=== PATIENT | male | born 1960 | race African-American/Black ===

== ENCOUNTER 2016-08-28 08:51 | Outpatient (CLI) | payer OTHER | END 2016-08-28 08:52 | LOC: LAB 08:51 | PROVIDERS: ATTEND Physician Assistant | DX: E11.9 Type 2 diabetes mellitus without complications (principal) | CPT/HCPCS: 36415; 83036 ==

== ENCOUNTER 2017-04-01 10:15 | Outpatient (CLI) | payer OTHER ==
[2017-04-01 11:04] LABS: eGFR (African) > 60; eGFR (Non-African) > 60
== END 2017-04-01 10:16 ==
LOC: LAB 10:15
PROVIDERS: ATTEND Family Medicine
DX: E11.9 Type 2 diabetes mellitus without complications (principal)
CPT/HCPCS: 36415; 80053; 80061; 83036

== ENCOUNTER 2017-05-20 10:47 | Outpatient (CLI) | payer OTHER ==
[~2017-05-20 10:47] MED LIST: 0.9 % SODIUM CHLORIDE PF 10 ML VIAL IJ ONE; Lidocaine 1% 5ml(IM or SUTURE)(PAIN CLINIC) ONE; TRIAMCINOLONE ACETONID 40MG/ML VIAL ONE
--- NOTE | 2017-05-20 15:07 | HISTORY AND PHYSICAL REPORT ---
REFERRING PHYSICIAN: Dr. Marbella Hunter HISTORY OF PRESENT ILLNESS: Mr. Mcarthur comes in today in follow up. This is a patient I saw in 2014 with lumbar radiculitis and an L5-S1 pars defect with spinal stenosis. He was treated with a lumbar epidural steroid injection x1 and his symptoms completely resolved. More recently, his pain has returned. He says it is slightly more left than right but bilateral radiating into both hips when he ambulates. He says this has occurred over the last couple of months and he presents today in follow up for treatment. PAST MEDICAL HISTORY: 1. History of hypertension. 2. Diabetes. 3. Gout. PAST SURGICAL HISTORY: Right wrist fracture requiring surgical repair. DAILY MEDICATIONS: 1. Glipizide 10 mg b.i.d. 2. Meloxicam 15 mg daily. 3. Amlodipine 5 mg daily. 4. Lisinopril/HCTZ 20/25 mg daily. 5. Allopurinol 300 mg daily. 6. Invokana 300 mg daily. 7. Metformin 1000 mg b.i.d. ALLERGIES: He has no known drug allergies. SOCIAL HISTORY: Unknown tobacco, alcohol, or recreational drug use. He has never been . He has children. He lives at home alone. He completed the 12th grade. 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 He is not disabled. FAMILY HISTORY: Father with stroke and diabetes. Mother with heart disease. Siblings with heart disease. REVIEW OF SYSTEMS: In the last month or so, he has had no complaints. His pain is worsened with bending over and first thing in the morning. Pain is improved with standing. PHYSICAL EXAMINATION: General: This is an obese male in no apparent distress. HEENT: Pupils are equal, round, and reactive to light and accommodation. Extraocular movements intact. No facial droop. Neck: There is full range of motion of the cervical spine. No evidence of adenopathy. Thyroid is nontender, not enlarged. Carotids are without bruits. Chest: Clear to auscultation bilaterally. Normal chest excursion. Heart: Regular rate and rhythm without murmur. Abdomen: Benign. Normoactive bowel sounds. Motor/sensory: Intact in the upper and lower extremities. Moves all extremities freely. Back: There are normal cervical, thoracic and lumbar curvatures. There are negative sacroiliac joint findings bilaterally. No evidence of pain or tenderness over the facet joints. Negative piriformis bilaterally. Negative straight leg raise. No evidence of dermatomal weakness or numbness in the lower extremities. Bilateral negative femoral nerve stretch. Patellar tendons are 2+ and equal bilaterally. ASSESSMENT: 1. L5-S1 pars defect. 2. Spinal stenosis. PLAN: L5-S1 epidural steroid injection under fluoroscopy. FOLLOW UP: Return to clinic if problems develop or worsen. cc: Dr. Marbella REDDING
--- NOTE | 2017-05-20 15:14 | LESI WITH FLUORO ---
OPERATIVE PROCEDURE: Left L5-S1 epidural steroid injection with fluoroscopic guidance. DESCRIPTION OF THE PROCEDURE: The risks and benefits were discussed with the patient including the risk of infection, bleeding, nerve injury, and headache, as well as the risks of steroid exposure causing hyperglycemia, hypertension, osteoporosis, or increased infectious risks. The patient understood these risks and agreed to proceed. Consent was obtained prior to the procedure. The patient was placed in the prone position on the fluoroscopy table with a pillow underneath the abdomen to afford anterior flexion of the lumbar spine. The low back was cleaned with and a sterile drape was applied. A 20-gauge thin wall Tuohy epidural needle was advanced with normal saline loss of resistance technique and direct fluoroscopic guidance with a left paramedian approach at the L5-S1 level. On obtaining loss of resistance to normal saline, it was verified that there was no aspiration of CSF or blood. Furthermore, the needle tip location was verified with lateral and AP fluoroscopic views. Omnipaque 240 myelogram dye were injected through the epidural needle. The distribution of the dye was noted to be within the desired distribution within the lumbar epidural space. The medication was injected into the epidural space. The stylet was replaced in the needle and the needle was removed from the back. The patient tolerated the procedure well. The back was cleaned and a bandage was applied over the injection site. The patient was monitored for 20 minutes following the procedure. during this time the vital signs remained stable and the patient experienced no adverse sequelae. The patient was discharged in good condition. ASSESSMENT: 1. L5-S1 pars defect. 2. Spinal stenosis. PLAN: Left L5-S1 lumbar epidural steroid injection with fluoroscopic guidance today. FOLLOWUP: Return to clinic if problems develop or worsen. cc: Dr. Marbella REDDING
== END 2017-05-20 10:50 ==
LOC: OUT 10:47
PROVIDERS: ATTEND Anesthesiology Pain Medicine
DX: M43.07 Spondylolysis, lumbosacral region (principal); M48.07 Spinal stenosis, lumbosacral region
CPT/HCPCS: J3301; Q9966; 62323; 99213

== ENCOUNTER 2017-06-17 10:52 | Outpatient (CLI) | payer OTHER ==
--- NOTE | 2017-06-20 14:51 | LESI WITH FLUORO ---
SUBJECTIVE: Mr. Mcarthur is a delightful 56-year-old male with a history of pars defect at L5-S1 associated with radiculitis. His left leg pain and back pain completely resolved following an injection. He lifted a large cabinet and his back pain is now returning. I am following him up today for a left L5-S1 epidural injection under fluoroscopic guidance. He is in agreement today and we will proceed. OPERATIVE PROCEDURE: Left L5-S1 epidural steroid injection with fluoroscopic guidance. DESCRIPTION OF PROCEDURE: The risks and benefits were discussed with the patient including the risk of infection, bleeding, nerve injury, and headache, as well as the risks of steroid exposure causing hyperglycemia, hypertension, osteoporosis, or increased infectious risks. The patient understood these risks and agreed to proceed. Consent was obtained prior to the procedure. The patient was placed in the prone position on the fluoroscopy table with a pillow underneath the abdomen to afford anterior flexion of the lumbar spine. The low back was cleaned and a sterile drape was applied. A Tuohy epidural needle was advanced with normal saline loss of resistance technique and direct fluoroscopic guidance with a left paramedian approach at the L5-S1 level. On obtaining loss of resistance to normal saline, it was verified that there was no aspiration of CSF or blood. Furthermore, the needle tip location was verified with lateral and AP fluoroscopic views. Omnipaque 240 myelogram dye were injected through the epidural needle. The distribution of the dye was noted to be within the desired distribution within the lumbar epidural space. The medication was injected into the epidural space. The stylet was replaced in the needle and the needle was removed from the back. The patient tolerated the procedure well. The back was cleaned and a bandage was applied over the injection site. The patient was monitored for 20 minutes following the procedure. during this time the vital signs remained stable and the patient experienced no adverse sequelae. The patient was discharged in good condition. ASSESSMENT: L5-S1 spondylolisthesis with radiculitis, status post epidural steroid injection x2. PLAN: Left L5-S1 epidural steroid injection with fluoroscopic guidance. FOLLOWUP: Follow up on a p.r.n. basis cc: Dr. Marbella Hunter. [facility]ATR[facility] CENTERPrabhakar
== END 2017-06-17 10:53 ==
LOC: OUT 10:52
PROVIDERS: ATTEND Anesthesiology Pain Medicine
DX: M43.17 Spondylolisthesis, lumbosacral region (principal)
CPT/HCPCS: 62323; 99213; J3301; Q9966

== ENCOUNTER 2017-07-02 16:44 | Outpatient (CLI) | payer OTHER | END 2017-07-02 16:45 | LOC: LAB 16:44 | PROVIDERS: ATTEND Family Medicine | DX: E11.9 Type 2 diabetes mellitus without complications (principal) | CPT/HCPCS: 36415; 82043; 83036 ==

== ENCOUNTER 2018-11-10 07:38 | Outpatient (CLI) | payer OTHER ==
[2018-11-10 08:14] LABS: A1C 7.7 % (<5.7)
[2018-11-10 08:37] LABS: HDL 39 mg/dL (>40); eGFR (Non-African) > 60
== END 2018-11-10 07:40 ==
LOC: LAB 07:38
PROVIDERS: ATTEND Family Medicine
DX: E11.9 Type 2 diabetes mellitus without complications (principal)
CPT/HCPCS: 36415; 80053; 80061; 82043; 83036

== ENCOUNTER 2019-01-12 14:07 | Outpatient (CLI) | payer OTHER ==
--- NOTE | 2019-01-12 14:40 | Diagnostic Imaging Report ---
PATIENT MR#: [id number] PATIENT PATIENT NAME: DAKOTA ROQUE DATE OF : 1960 REFERRING PHYSICIAN: Marbella Hunter EXAM DATE: 01/12/2019 ACCESSION NUMBER: [id number] EXAM DESCRIPTION: L SPINE 2 OR 3 VIEWS Exam: Lumbar spine 3 views Indication: LOW BACK PAIN AFTER FALL A WEEK AGO (Hx) / ---- Note time : 01/12/2019 2:34:34 PM User : Luisa Altamirano LOW BACK PAIN AFTER FALL A WEEK AGO (DICOM Hx) (DICOM Hx) Findings: No acute fracture, subluxation, or dislocation is identified. Mild endplate degenerative changes are present. If clinical symptoms persist follow up examination may be warranted to exclude an occult process. Impression: Degenerative changes Read by: Dr. Felice Saldana Transcribed by: Transcribed Date: Electronically signed by: Dr. Felice Saldana Date signed: 01/12/2019 2:39:30 PM
== END 2019-01-12 14:27 | disposition home or self-care (01) ==
LOC: RAD 14:07
PROVIDERS: ATTEND Family Medicine
DX: M54.5 Low back pain (principal)
CPT/HCPCS: 72100